=== PATIENT | female | born 1970 | race Caucasian/White ===

== ENCOUNTER 2019-03-27 07:02 | Outpatient (CLI) | payer OTHER ==
--- NOTE | 2019-03-27 07:48 | ULT ---
Gallbladder ultrasound: Multiple grayscale images of right upper quadrant obtained according to protocol. INDICATION: Pain FINDINGS: Liver: Normal Gallbladder: Normal Gallbladder wall: Normal. Rebolledo's Sign: Negative Common bile duct is normal. Ascites: None IMPRESSION: Normal gallbladder.
== END 2019-03-27 07:03 | disposition home or self-care (01) ==
LOC: SCSULT 07:02 → BICULT 07:03
PROVIDERS: ATTEND Family Medicine
DX: R10.11 Right upper quadrant pain (principal); R74.0 Nonspecific elevation of levels of transaminase and lactic acid dehydrogenase [LDH]
CPT/HCPCS: 76705

== ENCOUNTER 2019-04-05 13:42 | Outpatient (CLI) | payer OTHER ==
--- NOTE | 2019-04-05 14:30 | ULT ---
ULTRASOUND SOFT TISSUE OTHER: HISTORY: Palpable mass with swelling. COMPARISON: None. FINDINGS: Real-time, jeffery scale, and color evaluation of the left axilla was performed first by the technologis t and then by the radiologist in real time. Corresponding to the area of palpation os a focal area of fat. No abnormal mass. No adenopathy. IMPRESSION: BIRADS 2: Benign Findings. POS: OFF
== END 2019-04-05 13:43 | disposition home or self-care (01) ==
LOC: BICULT 13:42
PROVIDERS: ATTEND Family Medicine
DX: R74.0 Nonspecific elevation of levels of transaminase and lactic acid dehydrogenase [LDH] (principal); R10.11 Right upper quadrant pain
CPT/HCPCS: 76999